=== PATIENT | female | born 1975 | race Caucasian/White ===

== ENCOUNTER 2022-07-07 10:46 | Day surgery (SDC) | payer OTHER ==
[2022-07-07] MEDS ORDERED: FERRIC CARBOXYMALTOSE 750 MG in SODIUM CHLORIDE 250 ML IVPB SCH (11:00)
[2022-07-07 12:23] VITALS: BP 120/70; PULSE 72; RESP 18; TEMP 98.7
== END 2022-07-07 12:33 | disposition home or self-care (01) ==
LOC: FINFUSION 10:46 → FM/S 10:47 → FINFUSION 12:33
PROVIDERS: ATTEND Family Medicine
PROC: 3E033GC Introduction of Other Therapeutic Substance into Peripheral Vein, Percutaneous Approach (ICD-10-PCS; principal; 2022-07-07)
DX: D50.9 Iron deficiency anemia, unspecified (principal)
CPT/HCPCS: 96365; J1439

== ENCOUNTER 2022-07-14 11:08 | Day surgery (SDC) | payer OTHER ==
[2022-07-14] MEDS ORDERED: FERRIC CARBOXYMALTOSE 750 MG in SODIUM CHLORIDE 250 ML IVPB SCH (12:15)
[2022-07-14 13:11] VITALS: BP 114/71; PULSE 63; RESP 14; TEMP 98.8
== END 2022-07-14 13:11 | disposition home or self-care (01) ==
LOC: FINFUSION 11:08 → FM/S 11:50 → FINFUSION 13:11
PROVIDERS: ATTEND Family Medicine
DX: D50.9 Iron deficiency anemia, unspecified (principal)
CPT/HCPCS: 96365; J1439

== ENCOUNTER 2024-06-12 15:32 | Emergency (ER) | payer OTHER ==
[2024-06-12 15:46] VITALS: BP 132/99; PULSE 102; RESP 20; TEMP 99.7; BMI 36.9
== END 2024-06-12 19:06 | disposition home or self-care (01) ==
LOC: JERFT 15:32 → JER 15:32 → JERFT 19:06
PROC: 2W3QX1Z Immobilization of Right Lower Leg using Splint (ICD-10-PCS; principal; 2024-06-12)
DX: S82.51XA Displaced fracture of medial malleolus of right tibia, initial encounter for closed fracture (principal); S93.402A Sprain of unspecified ligament of left ankle, initial encounter; W01.0XXA Fall on same level from slipping, tripping and stumbling without subsequent striking against object, initial encounter
CPT/HCPCS: 73610-TC-LT-FY; 73610-TC-RT-FY; 99284-25

== ENCOUNTER 2024-07-02 11:10 | Day surgery (SDC) | payer OTHER ==
[2024-07-02 11:19] VITALS: BMI 36.1
[2024-07-02] MEDS: SODIUM CHLORIDE 0.9% 1000 ML INFUS.BAG IV ONE (11:44)
[2024-07-02 12:03] LABS: INR 1.08 (0.83-1.09)
[2024-07-02 12:06] LABS: ABSOLUTE IMMATURE GRANULOCYTES 0.01 x10^3/uL (0.0-0.031); ACTIVATED PTT 40.2 SECONDS (25.2-36.5); EOSINOPHIL % 1.9 % (0.7-5.8); EOSINOPHILS # 0.15 x10^3/uL (0.04-0.36); HEMATOCRIT 38.7 % (34.1-44.9); HEMOGLOBIN 12.3 g/dL (11.2-15.7); MCHC 31.8 g/dl (32.2-35.5); MEAN CELL VOLUME 81.3 fl (79.4-94.8); MEAN PLT VOLUME 10.4 fl (9.4-12.3); MONOCYTE % 7.8 % (4.7-12.5); PLATELET COUNT 458 x10^3/uL (182-369); RDW 13.9 % (12.2-17.1)
[2024-07-02 12:15] LABS: ALBUMIN 4.5 g/dl (3.4-5.0); ALK PHOS 110 U/L (45-117); ANION GAP 13 mmol/L (4-13); BILIRUBIN,TOTAL 0.5 mg/dl (0.2-1); CALCIUM 9.6 mg/dl (8.5-10.1); CHLORIDE 96 mmol/L (98-107); CO2 25 mmol/L (21-32); CREATININE 0.7 mg/dl (0.6-1.3); GLUCOSE,RANDOM 93 mg/dl (74-106); POTASSIUM 3.5 mmol/L (3.5-5.1); SGOT/AST 18 U/L (15-37); SGPT/ALT 9 U/L (7-52); SODIUM 134 mmol/L (136-145); TOT PROT 7.8 g/dl (6.4-8.2)
[2024-07-02] MEDS ORDERED: MIDAZOLAM HCL 2 MG/2 ML SINGLE DOSE VIAL ONE (12:34)
[2024-07-02] MEDS ORDERED: PROPOFOL 40 ML ONE (12:34)
[2024-07-02] MEDS ORDERED: ROPIVACAINE HCL/PF 100 MG/20 ML VIAL ONE (12:44)
[2024-07-02] MEDS ORDERED: oxyCODONE HCL 5 MG TABLET PO PRN (13:13)
[2024-07-02] MEDS ORDERED: DEXAMETHASONE SOD PHOSPHATE 4 MG/1 ML VIAL ONE (14:38)
[2024-07-02] MEDS ORDERED: KETOROLAC TROMETHAMINE 30 MG/1 ML VIAL ONE (14:38)
[2024-07-02] MEDS ORDERED: ONDANSETRON 4 MG/2 ML VIAL ONE ×2 (14:38→15:46)
[2024-07-02] MEDS ORDERED: HYDROmorphone HCL/PF 1 MG/ML VIAL ONE (14:58)
[2024-07-02] MEDS ORDERED: ACETAMINOPHEN INJECTION 100 ML ONE (15:40)
[2024-07-02] MEDS: ACETAMINOPHEN 1000 MG/100 ML BAG IVPB ONE (15:40)
[2024-07-02] MEDS ORDERED: FENTANYL CITRATE/PF 50 MCG/ML VIAL ONE ×2 (15:45→15:58)
[2024-07-02] MEDS: ONDANSETRON 4 MG/2 ML VIAL IVPUSH PRN (15:50)
[2024-07-02 16:22] VITALS: RESP 16
[2024-07-02] MEDS ORDERED: oxyCODONE HCL 5 MG TABLET ONE (16:28)
[2024-07-02 16:31] VITALS: PULSE 72; TEMP 97.5
[2024-07-02] MEDS: oxyCODONE HCL 5 MG TABLET PO ONE (16:40)
[2024-07-02 17:36] VITALS: BP 112/58
[2024-07-02 20:31] LABS: HIV INTERPRETATION NEGATIVE (NEGATIVE)
[2024-07-02 20:42] LABS: HCV DIAGNOSTIC IN-HOUSE W/RFLX REACTIVE (NONREACTIVE)
== END 2024-07-02 17:30 | disposition home or self-care (01) ==
LOC: FER 11:10 → FASU 11:34 → FASUSAT 11:34 → FASU 17:30
PROVIDERS: ATTEND Orthopaedic Surgery Sports Medicine
PROC: 0QSJ04Z Reposition Right Fibula with Internal Fixation Device, Open Approach (ICD-10-PCS; principal; 2024-07-02 14:25)
DX: S82.391A Other fracture of lower end of right tibia, initial encounter for closed fracture (principal); S93.431A Sprain of tibiofibular ligament of right ankle, initial encounter; X58.XXXA Exposure to other specified factors, initial encounter; Y93.9 Activity, unspecified; Y92.9 Unspecified place or not applicable; Z98.84 Bariatric surgery status
CPT/HCPCS: 36415; 73610-TC-RT-FY; 80053; 81025; 85025; 85610; 85730; 86803; 86850; 86900; 86901; 87389; 87522; 93005; 94760; 99285-25; C1713; J0131